=== PATIENT | male | born 2000 | race African-American/Black ===

== ENCOUNTER 2020-04-12 00:24 | Emergency (ER) | payer SELFPAY ==
[~2020-04-12] VITALS: Ht 175.3 cm; Wt 60.6 kg
[2020-04-12] MEDS ORDERED: ALPR2TAB97 PO (00:35)
[2020-04-12] MEDS ORDERED: MORPHINE SULFATE 4 MG/ML SYRINGE IVP ONE (01:00)
[2020-04-12] MEDS ORDERED: ONDANSETRON HCL 4 MG/2 ML VIAL IVP ONE (01:00)
[2020-04-12] MEDS ORDERED: KETAMINE HCL 50 MG/ML 10 ML VIAL IVP ONE (01:45)
[2020-04-12 03:45] VITALS: BP 126/71
== END 2020-04-12 04:10 | disposition home or self-care (01) ==
LOC: EMS 00:28
DX: S43.101A Unspecified dislocation of right acromioclavicular joint, initial encounter (principal); F41.9 Anxiety disorder, unspecified; F17.200 Nicotine dependence, unspecified, uncomplicated; F13.10 Sedative, hypnotic or anxiolytic abuse, uncomplicated; X58.XXXA Exposure to other specified factors, initial encounter; Y93.89 Activity, other specified; Y92.89 Other specified places as the place of occurrence of the external cause; Y99.8 Other external cause status
CPT/HCPCS: 23650; 73030; 99152; 99285; J2270; J2405; J3490